=== PATIENT | male | born 1965 | race Caucasian/White ===

== ENCOUNTER 2023-08-25 10:09 | Day surgery (SDC) | payer BC, OTHER ==
[2023-08-21 12:12] LABS: BASOPHILS % (AUTO) 0.3 % (0-1); EOSINOPHILS # (AUTO) 0.1 X10'3 (0-0.9); EOSINOPHILS % (AUTO) 0.9 % (0-6); HEMATOCRIT 40.5 % (42.0-52.0); HEMOGLOBIN 13.6 g/dl (14.0-17.9); LYMPHOCYTES # (AUTO) 1.7 X10'3 (1.1-4.8); LYMPHOCYTES % (AUTO) 16.9 % (21-51); MEAN CORPUSCULAR HEMOGLOBIN 30.3 PG (27.0-31.0); MEAN CORPUSCULAR HGB CONC 33.5 g/dL (33.0-36.5); MEAN CORPUSCULAR VOLUME 90.4 FL (78-98); MEAN PLATELET VOLUME 9.2 FL (7.4-10.4); MONOCYTES # (AUTO) 0.6 X10'3 (0-0.9); MONOCYTES % (AUTO) 5.8 % (2-12); NEUTROPHILS # (AUTO) 7.5 X10'3 (1.8-7.7); NEUTROPHILS % (AUTO) 76.1 % (42-75); PLATELET COUNT 180 X10'3 (140-440); RED BLOOD COUNT 4.48 X10'6 (4.70-6.10); RED CELL DISTRIBUTION WIDTH 14.5 % (11.5-14.5); WHITE BLOOD COUNT 9.8 X10'3 (4.5-11.0)
[2023-08-21 12:27] LABS: ALBUMIN 3.9 G/DL (3.4-5.0); ANION GAP 9 (8-16); APTT 31 SECONDS (22-32); BLOOD UREA NITROGEN 13 MG/DL (7-18); BUN/CREATININE RATIO 10.7 (10.0-20.0); CALCIUM 8.8 MG/DL (8.5-10.1); CHLORIDE 105 MMOL/L (99-107); CREATININE 1.22 MG/DL (0.60-1.10); GLUCOSE 90 MG/DL (70-104); POTASSIUM 3.6 MMOL/L (3.5-5.1); PROTHROMBIN TIME 10.9 SECONDS (9.0-12.0); SODIUM 138 MMOL/L (135-145); TOTAL CARBON DIOXIDE 24.2 MMOL/L (24-32); eGFR 61 ML/MIN
[2023-08-25] VITALS (8 sets, daily range): BP systolic 127–143; BP diastolic 67–88; PULSE 60–80; RESP 10–12; TEMP 97.7; O2SAT 98–100
[~2023-08-25] VITALS: Ht 182.9 cm; Wt 108.5 kg
[2023-08-25] MEDS ORDERED: APIX5TAB3 PO (10:25)
[2023-08-25] MEDS ORDERED: DILT240C78 PO (10:25)
[2023-08-25] MEDS ORDERED: BENZ-111 PO (10:25)
[2023-08-25] MEDS ORDERED: LOSA100T58 PO (10:25)
[2023-08-25] MEDS ORDERED: FLUT1BLS16 PO (10:25)
[2023-08-25] MEDS ORDERED: FLEC50TA PO (10:25)
[2023-08-25] MEDS: normal saline 1000ml 1,000 ML IV SCH (10:30)
[2023-08-25] MEDS: MIDAZolam 1mg/ml 10ml vial IV ONE (12:43)
[2023-08-25] MEDS: fentaNYL/PF 50MCG/1 ML 2ML syringe IV ONE (12:43)
== END 2023-08-25 13:42 | disposition home or self-care (01) ==
LOC: SSTAY O 10:09
PROVIDERS: ATTEND Student in an Organized Health Care Education/Training Program
DX: I48.91 Unspecified atrial fibrillation (principal); I45.10 Unspecified right bundle-branch block; Z79.01 Long term (current) use of anticoagulants
CPT/HCPCS: 36415; 80048; 85025; 85610; 85730; 92960; 93005; J2250; J3010; J7030

== ENCOUNTER 2023-10-09 07:56 | Outpatient (CLI) | payer OTHER ==
[~2023-10-09 07:56] MED LIST: APIX5TAB3 PO; BENZ-111 PO; DILT240C78 PO; FLEC50TA PO; FLUT1BLS16 PO; LOSA100T58 PO
[2023-10-09 08:27] LABS: BASOPHILS % (AUTO) 0.4 % (0-1); EOSINOPHILS # (AUTO) 0.2 X10'3 (0-0.9); EOSINOPHILS % (AUTO) 1.9 % (0-6); HEMATOCRIT 43.5 % (42.0-52.0); HEMOGLOBIN 14.5 g/dl (14.0-17.9); LYMPHOCYTES # (AUTO) 1.7 X10'3 (1.1-4.8); LYMPHOCYTES % (AUTO) 20.2 % (21-51); MEAN CORPUSCULAR HEMOGLOBIN 30.1 PG (27.0-31.0); MEAN CORPUSCULAR HGB CONC 33.4 g/dL (33.0-36.5); MEAN CORPUSCULAR VOLUME 90.1 FL (78-98); MONOCYTES # (AUTO) 0.7 X10'3 (0-0.9); NEUTROPHILS # (AUTO) 5.9 X10'3 (1.8-7.7); NEUTROPHILS % (AUTO) 69.5 % (42-75); PLATELET COUNT 231 X10'3 (140-440); RED BLOOD COUNT 4.82 X10'6 (4.70-6.10); RED CELL DISTRIBUTION WIDTH 13.1 % (11.5-14.5); WHITE BLOOD COUNT 8.5 X10'3 (4.5-11.0)
[2023-10-09 08:36] LABS: APTT 34 SECONDS (22-32); PROTHROMBIN TIME 10.6 SECONDS (9.0-12.0)
[2023-10-09 08:38] LABS: ALANINE AMINOTRANSFERASE 46 U/L (12-78); ALKALINE PHOSPHATASE 95 IU/L (46-116); ANION GAP 8 (8-16); ASPARTATE AMINO TRANSFERASE 26 U/L (10-37); BILIRUBIN,TOTAL 0.5 MG/DL (0.1-1.0); BLOOD UREA NITROGEN 19 MG/DL (7-18); CALCIUM 8.9 MG/DL (8.5-10.1); CHLORIDE 105 MMOL/L (99-107); CHOL/HDL RATIO 5.1 (0.00-4.99); CHOLESTEROL 190 MG/DL (0-200); CREATININE 1.27 MG/DL (0.60-1.10); GLUCOSE 101 MG/DL (70-104); HDL CHOLESTEROL 37 MG/DL (35-60); LDL CHOLESTEROL 124 MG/DL (50-100); POTASSIUM 4.5 MMOL/L (3.5-5.1); SODIUM 139 MMOL/L (135-145); TOTAL CARBON DIOXIDE 26.2 MMOL/L (24-32); TRIGLYCERIDES 110 MG/DL (20-135); eGFR 58 ML/MIN
== END 2023-10-09 23:59 | disposition home or self-care (01) ==
LOC: RAD 07:56 → EDSTATUS 10-13 14:00
PROVIDERS: ATTEND Student in an Organized Health Care Education/Training Program
DX: I11.9 Hypertensive heart disease without heart failure (principal); I48.91 Unspecified atrial fibrillation; E78.5 Hyperlipidemia, unspecified
CPT/HCPCS: 36415; 80053; 80061; 85025; 85610; 85730